=== PATIENT | female | born 1965 | race Caucasian/White ===

== ENCOUNTER 2021-11-10 12:03 | Emergency (ER) | payer SELFPAY ==
[~2021-11-10] VITALS: Ht 157.5 cm; Wt 54.5 kg
[2021-11-10] MEDS ORDERED: AMOX1TAB61 PO (13:28)
--- NOTE | 2021-11-10 13:28 | ED.ADGEN ---
Past Medical History Past Surgical History: , Tonsillectomy General Adult EDM: Chief Complaint: FLU SYMPTOM HPI: HPI: Patient is a 56 year old female with 2 weeks of sinus pain, low-grade fevers, and headache. Patient states she has had thick yellow drainage from her nose. Was tested for Covid and influenza 3 days ago, both were negative. Has not received vaccines for either Review of Systems: Review of Systems: All other systems within normal limits except for as noted in the HPI Physical Exam: PE: Constitutional: Well developed, well nourished, no acute distress, non-toxic appearance. [] HENT: Normocephalic, atraumatic, bilateral external ears normal, nose normal. Sinus tenderness [] Eyes: PERRLA, conjunctiva normal, no discharge. [] Neck: No rigidity, supple, no stridor. [] Cardiovascular: Regular rate and rhythm, brisk cap refill [] Lungs & Thorax: Non labored symmetric respirations, no tachypnea or respiratory distress [] Abdomen: Soft, nondistended. Skin: Warm, dry, no erythema, no rash. [] Back: Unremarkable Extremities: No deformities, range of motion grossly intact, no lower extremity edema [] Neurologic: Alert and oriented X 3, no focal deficits noted. [] Psychologic: Affect normal, judgement normal, mood normal. [] Current Patient Data: Vital Signs: Vital Signs Date Time Temp Pulse Resp B/P (MAP) Pulse Ox O2 Delivery O2 Flow Rate FiO2 11/10/ 12:35 98.4 94 18 164/86 (112) 98 Room Air 98.4 EKG: EKG: [] Heart Score: C/O Chest Pain: No Risk Factors: Risk Factors: DM, Current or recent (<one month) smoker, HTN, HLP, family histo ry of CAD, obesity. Risk Scores: Score 0 - 3: 2.5% MACE over next 6 weeks - Discharge Home Score 4 - 6: 20.3% MACE over next 6 weeks - Admit for Clinical Observation Score 7 - 10: 72.7% MACE over next 6 weeks - Early Invasive Strategies Radiology/Procedures: Radiology/Procedures: [] Course & Med Decision Making: Course & Med Decision Making Pertinent Labs and Imaging studies reviewed. (See chart for details) [] Dragon Disclaimer: Dragon Disclaimer: This electronic medical record was generated, in whole or in part, using a voice recognition dictation system. Departure Departure Impression: Primary Impression: Sinusitis Disposition: HOME / SELF CARE / HOMELESS Condition: STABLE Patient Instructions: Sinus Headache, [id number] Scripts Amoxicillin/Potassium Clav (AUGMENTIN 875-125 TABLET) 1 Each Tablet 1 TAB PO Q12HR for antibiotic for 10 Days, #20 TAB Prov: ISAK VALE MD 11/10/21 ISAK VALE MD Nov 10, 2021 13:28
[2021-11-10 13:30] VITALS: BP 146/76
== END 2021-11-10 13:30 | disposition home or self-care (01) ==
LOC: ER 12:03
DX: J32.9 Chronic sinusitis, unspecified (principal)
CPT/HCPCS: 99283